=== PATIENT | female | born 1970 ===

== ENCOUNTER 2025-04-11 18:11 | Emergency (ER) | payer SELFPAY ==
--- OUTSIDE RECORDS SUMMARY | 2025-04-11 19:06 | XMS_ITS | Clinical Summary ---
Author Organization [employer] [facility] Address [address] [place] [address] Care Team Providers Care Induction Brazer Name Role Phone Zoey Taylor APRN, CNP Primary Care Prov ider Allergies No known active allergies Medications estradioL (ESTRACE) 0.01 % (0.1 mg/gram) vaginal CreamIndicatio ns:Postmenopau vivian atrophic vaginitis Apply 1 g by vaginal route every 2 to 3 days as directed for postmenopausal atrophic vaginitis. 42.5 g 3 5 Active FLUoxetine (PROZAC) 10 mg oral CapsuleIndicat ions:Recurrent major depression in remission Take 1 Capsule (10 mg) by mouth in the morning for 5 days. 5 Capsule 5 Active sertraline (ZOLOFT) 25 mg oral TabletIndicati ons:Recurrent major depression in remission Take 1 Tablet (25 mg) by mouth in the morning. 90 Tablet 3 5 026 Active Active Problems Problem Noted Date Diagnosed Date Recurrent major depression in remission 07/28/20 24 Postmenopause atrophic vaginitis 07/28/2024 Hypercholesterolemia 04/22/2020 Overweight 04/22/2020 Lichen sclerosus et atrophicus 09/13/2017 Overview (09/03/2024): Uses topical estrogen for this Resolved Problems Problem Noted Date Diagnosed Date Resolved Date Atypical mole 08/25/2024 09/03/2024 Overview (09/03/2024): Just noticed History of depression 10/31/20212024 Adjustment disorder with depressed mood 09/09/2020 01/15/2025 Cholelithiasis 04/22/2020 09/03/2024 Menorrhagia 04/22/2020 01/15/2025 Biliary colic 04/21/2020 09/03/2024 Overview (09/03/2024): Added automatically from request for surgery [id number] Encounters Date Type Department Care Team Description 04/01/2025 [place] [address] Zoey Taylor APRN,GENERAL I FARMWORKER Subj: KINGA 01/25/2025 [place] [address] Zoey Taylor APRN,GENERAL I FARMWORKER Dx: Recurrent major depression in remission (Primary Dx) 01/15/2025 11:30 AM CDT Office Visit [place] [phone] Zoey Taylor, GREEN ENERGY MARKETING ANALYST,GENERAL I FARMWORKER Dx: Annual physical exam (Primary Dx) 01/15/2025 Results Follow-Up [place] [phone] Zoey Taylor, GREEN ENERGY MARKETING ANALYST,GENERAL I FARMWORKER URINALYSIS WITH REFLEX TO MICROSCOPIC, LIPID PANEL, URINE CULTURE, Additional followed-up results: 2 01/15/2025 Travel Subj: Question naire Submission from Last 3 Months Immunizations Immunization Administration Dates Next Due Influenza Vac, IM, Quadrival ent Preserv Free, (>6 months) 07/23/2023,05/26/2015 Influenza Vac,IM, Quadrivale nt, Preservative Free, (>4 Yrs)(ccIIV4) 07/01/2019 Pneumococcal Conj Vac, 20-valent (Prevnar) 01/15 SARS-COV-2, IM (COVID-19)(Pfizer)(De [place] Cruz Label) SARS-CoV-2, IM (COVID-19)([place])(Spikevax), 12+yrs, 50mcg/0.5mL 01/15/2025 Tdap Vaccine, IM, (Adacel)(Boostrix) 08/25/2019 Family History Medical History Relation Name Comments COPD Father Depression Maternal Grandmother hospita lized, doesn't know details Other Mother unknow autoimmu ne disease Skin Cancer Sister Relation Name Status Comments Father Alive Maternal Grandmother Mother Alive Sister Alive Social History Tobacco Use Types Packs/Day Years Used Date Smoking Tobacco: Never Smokeless Tobacco: Never Tobacco Cessation:Counseling Given: Not Answered Alcohol Use Standard Drinks/Week Comments Yes 0 (1 standard drink = 0.6 oz pur e alcohol) Denies excessive alcohol use B1300 Health Literacy Answer Date Recor ded How often do you need to hav e someone help you when you read instructions, pamphlets, or other written material from your doctor or pharmacy? Never 07/25/2024 [facility] Utilities Answer Date Recorded In the past 12 months has e 1d4 Pty, gas, oil, or water Activity Rocket threatened to shut off services in your home? No 07/25/2024 Humiliation, Afraid, Rape, and Kick questionnair e Answer Date Recorded Within the last year, have y ou been afraid of your partner or ex-partner? No 07/25/2024 Within the last year, have y ou been humiliated or emotionally abused in other ways by your partner or ex-partner? No Within the last year, have y ou been kicked, hit, slapped, or otherwise physically hurt by your partner or ex-partner? No 07/25/2024 Within the last year, have y ou been raped or forced to have any kind of sexual activity by your partner or ex-partner? No 07/25/2024 Social Connection and Isolat ion Panel [NHANES] Answer Date Recorded In a typical week, how many times do you talk on the phone with family, friends, or neighbors? More than three times a week 07/25/2024 How often do you get togethe r with friends or relatives? Twice a week 07/25/2024 How often do you attend [facility] or anabaptist services? 1 to 4 times per year 07/25/2024 Do you belong to any clubs o r organizations such as zoroastrian groups, unions, fraternal or athletic groups, or school groups? Yes 07/25/2024 How often do you attend meet ings of the clubs or organizations you belong to? 1 to 4 times per year 07/25/2024 Are you , , di vorced, , never , or living with a partner? 07/25/2024 AUDIT-C Answer Date Recorded Q1: How often do you have a drink containing alc ohol? 2-4 times a month 07/25/2024 Q2: How many drinks containi ng alcohol do you have on a typical day when you are drinking? 3 or 4 07/25/2024 Q3: How often do you have si x or more drinks on one occasion? Less than monthly 07/25/2024 Overall Financial Resource Strain (CARDIA) Answe r Date Recorded How hard is it for you to pa y for the very basics like food, housing, medical care, and heating? Patient declined 07/25/2024 [facility] - Occupational Stress Questionnaire Answer Date Recorded Do you feel stress - tense, restless, nervous, or anxious, or unable to sleep at night because your mind is troubled all the time - these days? Rather much 07/25/2024 Exercise Vital Sign Answer Date Recorde d On average, how many days pe r week do you engage in moderate to strenuous exercise (like a brisk walk)? 3 days 07/25/2024 On average, how many minutes do you engage in exercise at this level? 30 min 07/25/2024 Hunger Vital Sign Answer Date Recorded Within the past 12 months, y ou worried that your food would run out before you got the money to buy more. Never true 07/25/20 24 Within the past 12 months, t he food you bought just didn't last and you didn't have money to get more. Never true 07/25/2024 Housing Stability Vital Sign Answer J Luis e Recorded In the last 12 months, was t here a time when you were not able to pay the mortgage or rent on time? No 07/25/2024 In the past 12 months, how m any times have you moved where you were living? 1 07/25/2024 At any time in the past 12 m [facility], were you homeless or living in a halfway (including now)? No 07/25/2024 Housing Stability Answer Date Recorded In the last 12 months, was t here a time when you were not able to pay the mortgage or rent on time? No 07/25/2024 Number of Places Lived in the Last Year Not on f ile 07/25/2024 Number of Places Lived in the Last Year (Outpati ent) Not on file 07/25/2024 Number of Places Lived in the Last Year (Inpatie nt) Not on file 07/25/2024 Unstable Housing in the Last Year Not on file 07/25/2024 Depression (PHQ-9) Answer Date Recorded Last PHQ-9 Score 3 01/14/2025 Thoughts of self harm Not at all 01/14/2025 Pediatric Housing Stability Answer Date Recorded At any time in the past 12 m [facility], were you homeless or living in a halfway (including now)? No 07/25/2024 In the past 12 months, how m any times have you moved where you were living? 1 07/25/2024 Housing Condition Worry Not on file 07/25/20 Transportation Needs Answer Date Record ed In the past 12 months, has l ack of transportation kept you from medical appointments, meetings, work, or from getting medicines or things needed for daily living? No 07/25/2024 Caregiver Education and Work Answer J Luis e Recorded High School Degree Not on file 07/25/2024 How often do you need to hav e someone help you when you read instructions, pamphlets, or other written material from your doctor or pharmacy? Never 07/25/2024 Comments No Sex and Gender Information Value Date Recorded Sex Assigned at Not on file Legal Sex Female 6:23 PM FIRESTOPPER INSTALLER Gender Identity Not on file Sexual Orientation Not on file Last Filed Vital Signs Vital Sign Reading Time Taken Comments Blood Pressure 128/78 01/15/2025 11:13 AM CDT Pulse 71 01/15/2025 11:13 AM CDT Temperature 35.9 C (96.7 F) 08/25/2019 7:43 AM FIRESTOPPER INSTALLER Respiratory Rate 20 08/10/2016 4:39 PM FIRESTOPPER INSTALLER Oxygen Saturation 95% 08/10/2016 4:39 PM FIRESTOPPER INSTALLER Inhaled Oxygen Concentration - - Weight 75.3 kg (166 lb) 01/15/2025 11:13 AM CDT Height 159.4 cm (5' 2.75) 01/15/2025 11:13 AM C DT Body Mass Index 29.64 01/15/2025 11:13 AM CDT Plan of Treatment Health Maintenance Due Date Last Done Comments HIV Screen 1983 Hepatitis B Vaccines (1 of 3 - 19+ 3-dose series) 1987 CT Colonography 2013 Colonoscopy 2013 Colorectal Cancer Screening 2013 Fecal Immunochemical DNA Test (FIT-DNA) 2013 Fecal Immunochemical Test (FIT) 2013 Varicella Zoster Sequential (1 of 2) 2018 Mammogram Standard 11/28/2023 11/27/2022 Depression Screening 04/16/2025 01/14/2025 Influenza Vaccine (#1) 2025 , 07/01/2019, 05/26/2015 DTaP/Tdap/Td Vaccines (2 - Td or Tdap) 08/25/2029 08/25/2019 Cervical Cancer Screening 01/15/2030 01/15/2025, HPV Testing 01/15/2030 01/15/2025 Lipids Standard 01/15/2030 01/15/2025, 06/20, 08/25/2019 Respiratory Syncytial Virus (RSV) Vaccine (1 - 1-dose 75+ series) 2043 Hepatitis C Testing Completed 12/05/2024 COVID-19 Vaccine Completed 01/15/2025, 02/2022, 09/17/2020, Additional history exists Pneumococcal Vaccine (50+ Years) Completed 01/15/2025 HIB Vaccines Aged Out No longer eligi ble based on patient's age to complete this topic HPV Vaccines (No Doses Required) Completed Hepatitis A Vaccines Aged Out No long er eligible based on patient's age to complete this topic Meningococcal B Vaccines Aged Out No longer eligible based on patient's age to complete this topic Meningococcal Vaccines Aged Out No lo nger eligible based on patient's age to complete this topic Procedures Procedure Name Priority Date/Time Associated Diagnosis Comments LIPID PANEL Routine 01/15/2025 12:01 PM CDT Hypercholesterolem ia HUMAN PAPILLOMAVIRUS DETECTION WITH GENOTYPING, HIGH-RISK TYPES BY PCR Routine 01/15/2025 11:53 AM CDT Screening for cervical cancer PAP TEST Routine 01/15/2025 11:53 AM CDT Screening for cervical cancer URINE CULTURE Routine 01/15/2025 11:45 AM CDT Urinary frequency URINALYSIS WITH REFLEX TO MICROSCOPIC Routine 01/15/2025 11:45 AM CDT Urinary frequency HEPATITIS C AB Routine 12/05/2024 9:13 AM CDT Encounter for hepatitis C screening test for low risk patient from Last 3 Months or Most Recently Relevant to Health Maintenance Results * (ABNORMAL) LIPID PANEL (01/15/2025 12:01 PM CDT) Cholesterol 310(H) 0 - 200 mg/dL 01/15/2025 12:31 PM CDT [facility] Triglycerides 237(H) 0 - 150 mg/dL 01/15/2025 12:31 PM CDT [facility] Cholesterol, LDL (Calculated) 199(H) 0 - 130 mg/dL 01/15/2025 12:31 PM CDT [facility] Cholesterol, HDL 64 >=40 mg/dL 01/15/2025 12:31 PM CDT [facility] Cholesterol, vLDL 47(H) 8 - 44 mg/dL 01/15/2025 12:31 PM CDT [facility] Fasting Status No 01/15/2025 12:31 PM CDT [facility] Blood VENOUS BLOOD / Unknown Venipuncture / Unknown 01/15/2025 12:01 PM CDT 01/15/2025 12:01 PM CDT us Zoey Taylor APRN,GENERAL I FARMWORKER LAB CHEMISTRY ORDE JEAN Final Result [facility] [address] [place] [address], [place] [phone] * PAP TEST (01/15/2025 11:53 AM CDT) Specimen Adequacy Satisfactory for evaluation: Endocervical component present. 11:26 AM CDT [facility] Interpretation Negative for intraepithelial lesion or malignancy. Negative 11:26 AM CDT [facility] at 1126 CDT HPV Reflex? Pap test with HPV Co-Testing unless Pap test shows HSIL 11:26 AM CDT [facility] Menstrual Status Premenopausal 01/20 11:26 AM CDT [facility] Disclaimer/Infor mational Comment The Pap test is an initial screening test that is helpful in the detection of certain benign, pre-malignant disorders of cervical and vaginal tissues. Like all medical tests, the Pap test has an inherent false-negative and false-positive rate, therefore, regular gynecologic health care with Pap test screening is highly suggested. In addition, an abnormal result may require additional confirmatory testing. 11:26 AM CDT [facility] Other CERVIX UTERI STRUCTURE / Unknown Non-blood Collection / Unknown 01/15/2025 11:53 AM CDT 01/15/2025 1:25 PM CDT Zoey Taylor APRN,GENERAL I FARMWORKER LAB CYTOLOGY ORDER JUAREZ Final Result [facility] [address] [place] [address], * HUMAN PAPILLOMAVIRUS DETECTION WITH GENOTYPING, HIGH-RISK TYPES BY PCR (01/15/2025 11:53 AM CDT) Human papilloma virus DNA/mRNA Negative Negative HOLOGIC PANTHER 01/21/2025 12:12 PM CDT [facility] Other CERVIX UTERI STRUCTURE / Unknown Non-blood Collection / Unknown 01/15/2025 11:53 AM CDT 01/20/2025 11:26 AM CDT Narrative [facility] - 01/21/2025 12:12 PM CDT The APTIMA HPV assay is an invitro nucleic acid amplification test for the qualitative detection of E6/E7 viral messenger RNA (mRNA) of 14 high-risk types of HPV. This test was developed and performance characteristics determined by [facility]. It has not been reviewed by the U.S. Food and Drug Administration. Such a review is neither encouraged nor required. us Zoey Taylor APRN,DELANEY LAB MOLECULAR ORDTacos PENA Final Result [facility] [address] [place] [address], [place] [phone] * URINALYSIS WITH REFLEX TO MICROSCOPIC (01/15/2025 11:45 AM CDT) Color, Urine Yellow Yellow 01/15/2025 1:31 PM CDT [facility] Clarity, Urine Clear Clear 01/15/2025 1:31 PM CDT [facility] Specific [place], Urine <=1.005 1.005 - <1.030 01/15/2025 1:31 PM CDT [facility] Glucose, Urine Negative Negative 01/15/2025 1:31 PM CDT [facility] Bilirubin, Urine Negative Negative 01/15/2025 1:31 PM CDT [facility] Ketone, Urine Negative Negative 01/15/2025 1:31 PM CDT [facility] Blood, Urine Negative Negative 01/15/2025 1:31 PM CDT [facility] pH, Urine 6.5 5.0 - 8.5 pH 01/15/2025 1:31 PM CDT [facility] Protein, Urine Negative Negative 01/15/2025 1:31 PM CDT [facility] Urobilinogen, Urine 0.2 <2.0 EU/dL 01/15/2025 1:31 PM CDT [facility] Nitrite, Urine Negative Negative 01/15/2025 1:31 PM CDT [facility] Leukocyte Esterase, Urine Negative Negative 01/15/2025 1:31 PM CDT [facility] Urine URINE SPECIMEN OBTAINED BY CLEAN CATCH PROCEDURE / Unknown Non-blood Collection / Unknown 01/15/2025 11:45 AM CDT 01/15/2025 1:28 PM CDT Zoey Taylor APRN, CNP LAB URINE ORDERABL ES Final Result [facility] [address] [place] [address], [place] [phone] * URINE CULTURE (01/15/2025 11:45 AM CDT) Culture <10,000 colonies/mL Probable contaminant(s ) 01/17/2025 7:30 AM CDT [facility] Urine URINE SPECIMEN OBTAINED BY CLEAN CATCH PROCEDURE / Unknown Non-blood Collection / Unknown 01/15/2025 11:45 AM CDT 01/15/2025 1:29 PM CDT Zoey Taylor APRN, CNP LAB MICROBIOLOGY O RDERABLES Final Result [facility] [address] [place] [address], [place] [phone] * HEPATITIS C AB (12/05/2024 9:13 AM CDT) HCV Ab Nonreactive Nonreactive 12/05/2024 1:22 PM CDT [facility] Comment:Interpretation: Anti bodies to HCV were not detected; does not exclude the possibility of exposure to HCV. Blood VENOUS BLOOD / Unknown Venipuncture / Unknown 12/05/2024 9:13 AM CDT 12/05/2024 9:13 AM CDT Zoey Taylor APRN, CNP LAB SEROLOGY ORDER JUAREZ Final Result [facility] [address] [place] [facility] [place] [address], [place] [phone] from Last 3 Months or Most Recently Relevant to Health Maintenance Insurance RETURNED MAIL [facility] [phone] [place] [id number] BCBS OUT OF STATE RETURNED MAIL [facility] [phone] [place] [id number] Care Teams Induction Brazer Relationship Specialty Start Date End Date Zoey Taylor APRN, CNP [address] [place] [phone] PCP - General Nurse Practitioner 12/01/24 Additional Source Comments PLEASE NOTE: Replies to this message will not be received.[facility]
--- OUTSIDE RECORDS SUMMARY | 2025-04-11 19:06 | XMS_ITS | Referral Summary ---
Author Organization [facility] Address [address] [place] [address] Care Team Providers Care Production Drilling Machine Operator Name Role Phone Zoey Taylor APRN, CNP Primary Care Prov ider Encounters Date Type Department Care Team Description 04/01/2025 Patient Message [place] [phone] Zoey Taylor APRN, CNP Subj: KINGA 01/25/2025 Refill [place] [phone] Zoey Taylor APRN, CNP Dx: Recurrent major depression in remission (Primary Dx) 01/15/2025 Results Follow-Up [place] [phone] Zoey Taylor APRN, CNP URINALYSIS WITH REFLEX TO MICROSCOPIC, LIPID PANEL, URINE CULTURE, Additional followed-up results: 2 01/15/2025 Travel Subj: Question naire Submission 01/15/2025 11:30 AM CDT Office Visit [address] [address] Zoey Taylor APRN, CNP Dx: Annual physical exam (Primary Dx) from Last 3 Months Allergies No known active allergies Medications estradioL [...] (09/03/2024): Added automatically from request for surgery [id number] Immunizations Immunization Administration Dates Next Due Influenza Vac, IM, Quadrival ent Preserv Free, (>6 months) 07/23/2023,05/26/2015 Influenza Vac,IM, Quadrivale nt, Preservative Free, (>4 Yrs)(ccIIV4) 07/01/2019 Pneumococcal Conj Vac, 20-valent (Prevnar) 01/15 SARS-COV-2, IM (COVID-19)(Pfizer)(De La Cruz Label) SARS-CoV-2, IM (COVID-19)(Mo derna)(Spikevax), 12+yrs, 50mcg/0.5mL 01/15/2025 Tdap Vaccine, IM, (Adacel)(Boostrix) 08/25/2019 Social History Tobacco Use Types Packs/Day Years [...] from your doctor or pharmacy? Never 07/25/2024 [facility] Utilities Answer Date Recorded In the past 12 months has e [employer], gas, oil, or water [employer] threatened to shut off services in your [...] week 07/25/2024 How often do you attend chur or restorationist services? 1 to 4 times per year 07/25/2024 Do you belong to any clubs o r organizations such as druze groups, unions, fraternal or athletic groups, or [...] medical care, and heating? Patient declined 07/25/2024 [facility] of Occupat ional Health - Occupational Stress Questionnaire Answer Date Recorded [...] any time in the past 12 m [facility], were you homeless or living in a retirement (including now)? No 07/25/2024 Housing Stability Answer [...] any time in the past 12 m [facility], were you homeless or living in a retirement (including now)? No 07/25/2024 In the past 12 months, how m any times have you moved where you were living? 1 07/25/2024 Housing Condition Worry Not on file 07/25/20 24 Transportation Needs Answer Date Record ed In [...] on file Legal Sex Female 6:23 PM FORECLOSURE FIELD INSPECTOR Gender Identity Not on file Sexual Orientation Not on file Last Filed Vital Signs Vital Sign Reading Time Taken Comments Blood Pressure 128/78 01/15/2025 11:13 AM CDT Pulse 71 01/15/2025 11:13 AM CDT Temperature 35.9 C (96.7 F) 08/25/2019 7:43 AM FORECLOSURE FIELD INSPECTOR Respiratory Rate 20 08/10/2016 4:39 PM FORECLOSURE FIELD INSPECTOR Oxygen Saturation 95% 08/10/2016 4:39 PM FORECLOSURE FIELD INSPECTOR Inhaled Oxygen Concentration - - Weight 75.3 kg (166 lb) 01/15/2025 11:13 AM CDT Height 159.4 cm (5' 2.75) 01/15/2025 11:13 AM C DT Body Mass Index 29.64 01/15/2025 11:13 AM CDT Functional Status * Are you deaf or do you have serious difficulty hearing? Answer Date of Assessment Author No 08/10/2016 4:39 PM Andie Wilson RN * Are you blind or do you have serious difficulty seeing, even when wearing glasses? Answer Date of Assessment Author No 08/10/2016 4:39 PM Andie Wilson RN * Do you have serious difficulty walking or climbing stairs? Answer Date of Assessment Author No 08/10/2016 4:39 PM Andie Wilson RN * Do you have difficulty dressing or bathing? Answer Date of Assessment Author No 08/10/2016 4:39 PM Andie Wilson RN * Do you have difficulty doing errands alone such as visiting a doctor's office or shopping because of a physical, mental, or emotional condition? Answer Date of Assessment Author No 08/10/2016 4:39 PM Andie Wilson RN Mental Status * Do you have trouble concentrating, remembering, or making decisions because of a physical, mental, or emotional condition? Answer Entry Date Author No 08/10/2016 4:39 PM Andie Wilson RN Plan of Treatment Not on file Procedures Procedure Name Priority Date/Time Associated Diagnosis [...] - 200 mg/dL 01/15/2025 12:31 PM CDT [facility] Triglycerides 237(H) 0 - 150 mg/dL 01/15/2025 12:31 PM CDT [facility] Cholesterol, LDL (Calculated) 199(H) 0 - 130 mg/dL 01/15/2025 12:31 PM CDT [facility] Cholesterol, HDL 64 >=40 mg/dL 01/15/2025 12:31 PM CDT [facility] Cholesterol, vLDL 47(H) 8 - 44 mg/dL 01/15/2025 12:31 PM CDT [facility] Fasting Status No 01/15/2025 12:31 PM CDT [facility] Blood VENOUS BLOOD / Unknown Venipuncture / Unknown 01/15/2025 12:01 PM CDT 01/15/2025 12:01 PM CDT us Zoey Taylor APRN,DELANEY LAB CHEMISTRY ORDE JEAN Final Result [facility] [address] [place] [phone], * PAP TEST (01/15/2025 11:53 AM CDT) Specimen Adequacy Satisfactory for evaluation: Endocervical component present. 11:26 AM CDT [facility] Interpretation Negative for intraepithelial lesion or malignancy. Negative 5 11:26 AM CDT [facility] at 1126 CDT HPV Reflex? Pap test with HPV Co-Testing unless Pap test shows HSIL 11:26 AM CDT [facility] Menstrual Status Premenopausal 01/20 11:26 AM CDT [facility] Disclaimer/Infor mational Comment The Pap test is [...] require additional confirmatory testing. 11:26 AM CDT [facility] Other CERVIX UTERI STRUCTURE / Unknown Non-blood Collection / Unknown 01/15/2025 11:53 AM CDT 01/15/2025 1:25 PM CDT us Zoey Taylor APRN, CNP LAB CYTOLOGY ORDER JUAREZ Final Result Performing Organization Address City/[facility]/ZIP Co de Phone Number [facility] [address] [place] [address], [place] [phone] * HUMAN PAPILLOMAVIRUS DETECTION WITH GENOTYPING, HIGH-RISK TYPES BY PCR (01/15/2025 11:53 AM CDT) Human papilloma virus DNA/mRNA Negative Negative HOLOGIC PANTHER 01/21/2025 12:12 PM CDT [facility] Other CERVIX UTERI STRUCTURE / Unknown Non-blood Collection / Unknown 01/15/2025 11:53 AM CDT 01/20/2025 11:26 AM CDT Narrative [facility] - 01/21/2025 12:12 PM CDT The APTIMA HPV assay is an invitro nucleic acid amplification test for the qualitative detection of E6/E7 viral messenger RNA (mRNA) of 14 high-risk types of HPV. This test was developed and performance characteristics determined by [facility]. It has not been reviewed by the U.S. Food and Drug Administration. Such a review is neither encouraged nor required. us Zoey Taylor APRN, CNP LAB MOLECULAR ORDE RABLES Final Result Performing Organization Address City/[facility]/ZIP Co de Phone Number [facility] [address] [place] [address], [place] [phone] * URINALYSIS WITH REFLEX TO MICROSCOPIC (01/15/2025 11:45 AM CDT) Color, Urine Yellow Yellow 01/15/2025 1:31 PM CDT [facility] Clarity, Urine Clear Clear 01/15/2025 1:31 PM CDT [facility] Specific [place], Urine <=1.005 1.005 - <1.030 01/15/2025 1:31 PM CDT [facility] Glucose, Urine Negative Negative 01/15/2025 1:31 PM CDT [facility] Bilirubin, Urine Negative Negative 01/15/2025 1:31 PM CDT [facility] Ketone, Urine Negative Negative 01/15/2025 1:31 PM CDT [facility] Blood, Urine Negative Negative 01/15/2025 1:31 PM CDT [facility] pH, Urine 6.5 5.0 - 8.5 pH 01/15/2025 1:31 PM CDT [facility] Protein, Urine Negative Negative 01/15/2025 1:31 PM CDT [facility] Urobilinogen, Urine 0.2 <2.0 EU/dL 01/15/2025 1:31 PM CDT [facility] Nitrite, Urine Negative Negative 01/15/2025 1:31 PM CDT [facility] Leukocyte Esterase, Urine Negative Negative 01/15/2025 1:31 PM CDT [facility] Urine URINE SPECIMEN OBTAINED BY CLEAN CATCH PROCEDURE / Unknown Non-blood Collection / Unknown 01/15/2025 11:45 AM CDT 01/15/2025 1:28 PM CDT us Zoey Taylor APRN,PROCESS CONTROLLER LAB URINE ORDERABL ES Final Result [facility] [address] [place] [address], [place] [phone] * URINE CULTURE (01/15/2025 11:45 AM CDT) Culture <10,000 colonies/mL Probable contaminant(s ) 01/17/2025 7:30 AM CDT [facility] Urine URINE SPECIMEN OBTAINED BY CLEAN CATCH PROCEDURE / Unknown Non-blood Collection / Unknown 01/15/2025 11:45 AM CDT 01/15/2025 1:29 PM CDT Zoey Taylor APRN, CNP LAB MICROBIOLOGY O RDERABLES Final Result Performing Organization Address [facility]/ZIP Co de Phone Number [facility] [address] [place] [address], [place] [phone] * HEPATITIS C AB (12/05/2024 9:13 AM CDT) HCV Ab Nonreactive Nonreactive 12/05/2024 1:22 PM CDT [facility] Comment:Interpretation: Anti bodies to HCV were not detected; does not exclude the possibility of exposure to HCV. Blood VENOUS BLOOD / Unknown Venipuncture / Unknown 12/05/2024 9:13 AM CDT 12/05/2024 9:13 AM CDT Zoey Taylor APRN, CNP LAB SEROLOGY ORDER JUAREZ Final Result Performing Organization Address [facility] Co de Phone Number [facility] [address] [place] [address], [place] [phone] from Last 3 Months or Most Recently Relevant to Health Maintenance Insurance RETURNED MAIL [id number] [place] [id number] [id number] [place] [id number] BCBS OUT OF STATE [place] [id number] [id number] [place] [id number] Care Teams Production Drilling Machine Operator Relationship Specialty Start Date End Date Zoey Taylor APRN,PROCESS CONTROLLER [address] [place] [address] [address] [place] [phone] PCP - General Nurse Practitioner 12/01/24 Additional Source Comments PLEASE NOTE: Replies to this message will not be received.[facility]
--- OUTSIDE RECORDS SUMMARY | 2025-04-11 19:06 | XMS_ITS | Encounter Summary ---
Author Organization [employer] [facility] Address [address] [place] [address] Care Team Providers Care Infection Control Practitioner Name Role Phone Zoey Taylor APRN, CNP Primary Care Prov ider Encounter Details Date Type Department Care Team (Late st Contact Info) Description 04/01/2025 Patient Message [facility] [address] [facility] [address] [place], [place] [phone] Zoey Taylor APRN, CNP [address] [facility] [address] [place] [phone] Subj: KINGA Social History Tobacco Use Types Packs/Day Years Used Date Smoking Tobacco: Never Smokeless Tobacco: Never Alcohol Use Standard Drinks/Week Comments Yes 0 (1 standard drink = 0.6 oz pur e alcohol) Denies excessive alcohol use B1300 Health Literacy Answer Date Recor ded How often do you need to hav e someone help you when you read instructions, pamphlets, or other written material from your doctor or pharmacy? Never 07/25/2024 [facility] Utilities Answer Date Recorded In the past 12 months has [facility] [employer], gas, oil, or water [employer] threatened to shut off services in your [...] 07/25/2024 How often do you attend chur ch or judaism services? 1 to 4 times per year 07/25/2024 Do you belong to any clubs o r organizations such as mosque groups, unions, fraternal or athletic groups, or [...] medical care, and heating? Patient declined 07/25/2024 [facility] of Occupat ional Health - Occupational Stress [...] any time in the past 12 m [facility], were you homeless or living in a care home (including now)? No 07/25/2024 Housing Stability Answer [...] any time in the past 12 m [facility], were you homeless or living in a care home (including now)? No 07/25/2024 In the past [...] on file Legal Sex Female 6:23 PM FORENSIC PSYCHOLOGIST Gender Identity Not on file Sexual Orientation Not on file documented as of this encounter Functional Status * Are you deaf or [...] No 08/10/2016 4:39 PM Andie Wilson RN documented as of this encounter Mental Status * Do you have trouble concentrating, remembering, or making decisions because of a physical, mental, or emotional condition? Answer Entry Date Author No 08/10/2016 4:39 PM Andie Wilson RN documented in this encounter Plan of Treatment Not on file documented as of this encounter Visit Diagnoses Not on filedocumented in this encounter Care Teams Infection Control Practitioner Relationship Specialty Start Date End Date Zoey Taylor APRN,MANAGER OF EMPLOYEE RELATIONS [address] [place] [phone] PCP - General Nurse Practitioner 12/01/24 documented as of this encounter Additional Source Comments PLEASE NOTE: Replies to this message will not be received.[facility]
--- OUTSIDE RECORDS SUMMARY | 2025-04-11 19:06 | XMS_ITS | Encounter Summary ---
Author Organization [facility] Address [address] [place] [address] Care Team Providers Care Certified Nurse Midwife Name Role Phone Provider, No Primary Primary Care Provider Unava ilable Provider, No Primary Unavailable Unavailable Lindsay Mason APRN, CNP Primary Care Provid er Unavailable Provider, No Primary Primary Care Provider Unava ilable Zoey Taylor APRN, CNP Primary Care Prov ider Encounter Details Date Type Department Care Team (Late st Contact Info) Description 10/25/1994 Historical Notes [address] [address] Unknown, [place] [address] Social History Tobacco Use Types Packs/Day Years Used Date Smoking Tobacco: Never Assessed Comments Unknown Sex and Gender Information Value Date Recorded Sex Assigned at Not on file Legal Sex Female 6:23 PM CREDIT OPERATIONS PROCESSOR Gender Identity Not on file Sexual Orientation Not on file documented as of this encounter Procedure Notes * Unknown, Provider - 10/25/1994 9:[address] Szymanski This 24-year-old G2, P1 now P2 at 38 weeks gestation, , prior section for 10 pound, 3 ounce baby at 42 weeks, complicated by hemorrhage, hemoglobin of 4, requiring 3 units of packed red blood cells with development of anti-lian antibody titer during this , was as high as 1 to 256, Liley's zone had been 1 on two occasions, no sign of hydrops on ultrasound. Biophysical profile scores 10 out of 10. Estimated weight on last ultrasound 8 pounds 12 ounces. Estimated weight by Robert 8 1/2 to 9 pounds. Options were discussed, risks discussed, patient wanted to proceed with trial of labor. Cervix was dilated to 3, 70% effaced, and -2 station. Membranes were ruptured yielding clear fluid. She progressed well, received Nubain x 1 to complete and began to push, did have some heart tones in the 80 to 90s with good return into the 120s and 130s, developed a 12 minute pattern of heart tones in the 170s with good variability, had brought the baby down to +2 station, for that reason vacuum assist was applied after risks discussed. Was able to bring the baby down to . At that point we had to re-apply the vacuum and with one pull delivered a live born male , with a nuchal arm x 1 that was reduced and a mild shoulder dystocia that responded to reducing the nuchal arm, McRobert's position, and suprapubic pressure. Apgars were 7 at one and 8 at five. Weight 7 pounds, 13 ounces, EBL 350 cc. Repair of the episiotomy was with #2-0 and #3-0 Vicryl. Placenta delivered spontaneously intact. I did explore the uterus. There were no retained products from conception. Inspection of the vagina and cervix noted no other lacerations. EBL 350 cc. No blood was replaced. Dic 10/25/94 [place] 10/26/94 moo Szymanski LABOR AND DELIVERY SUMMARY NAME: Sammi Fournier ROOM: [facility] MR#: [id number] MEDICAL RECORDS DEPARTMENT DELIVERY DATE: 10/25/94 [facility] [place]. D/ , 0900 documented in this encounter Plan of Treatment Not on file documented as of this encounter Visit Diagnoses Not on filedocumented in this encounter Care Teams Certified Nurse Midwife Relationship Specialty Start Date End Date Provider, [place] [address] PCP - General 08/10/16 08/24/19 Lindsay Mason BUS INSPECTOR,SALES [place] [address] PCP - General Nurse Practitioner 08/25/19 08/24/20 Provider, [place] [address] PCP - General 08/25/20 11/30/24 Zoey Taylor BUS INSPECTOR,SALES SUPPORT CONSULTANT [address] [place] [phone] PCP - General Nurse Practitioner 12/01/24 Provider, No Primary . [place] [address] 09/17/17 11/30/24 documented as of this encounter Additional Source Comments PLEASE NOTE: Replies to this message will not be received.[facility]
--- OUTSIDE RECORDS SUMMARY | 2025-04-11 19:06 | XMS_ITS | Encounter Summary ---
Author Organization [facility] Address [address] [place] [address] Care Team Providers Care Director Of Acquisitions Name Role Phone Zoey Taylor APRN, CNP Primary Care Prov ider Encounter Details Date Type Department Care Team (Late st Contact Info) Description 01/15/2025 Results Follow-Up [facility] [address] [place] [phone] Zoey Taylor APRN, CNP [address] [place] [phone] URINALYSIS WITH REFLEX TO MICROSCOPIC, LIPID PANEL, URINE CULTURE, Additional followed-up results: 2 Social History Tobacco Use Types Packs/Day Years [...] from your doctor or pharmacy? Never 07/25/2024 [facility] Utilities Answer Date Recorded In the past 12 months has e electric, gas, oil, or water company threatened to shut off services in your [...] How often do you attend chur or sikh services? 1 to 4 times per year 07/25/2024 Do you belong to any clubs o r organizations such as baptism groups, unions, fraternal or athletic groups, or [...] medical care, and heating? Patient declined 07/25/2024 [facility] Occup[facility] ional Health - Occupational Stress [...] any time in the past 12 m [facility], were you homeless or living in a prison (including now)? No 07/25/2024 Housing Stability Answer [...] any time in the past 12 m [facility], were you homeless or living in a prison (including now)? No 07/25/2024 In the past [...] on file Legal Sex Female 6:23 PM HEALTH SPA MANAGER Gender Identity Not on file Sexual Orientation [...] on filedocumented in this encounter Care Teams Director Of Acquisitions Relationship Specialty Start Date End Date Zoey Taylor APRN,INFORMATICA DEVELOPER [address] [place] [phone] PCP - General Nurse Practitioner 12/01/24 documented as of this encounter Additional Source Comments PLEASE NOTE: Replies to this message will not be received.[facility]
--- NOTE | 2025-05-28 13:04 | PM.EN ---
Chart Event Note Chart Event Note: This patient left before being seen.
--- NOTE | 2025-06-06 08:26 | W.ED.CHARTNO ---
ED Chart Note Chart Note Details Date: 06/06/25 Details: This patient left without being seen.
== END 2025-04-11 19:05 | disposition left against medical advice (07) ==
LOC: ED 19:04
PROVIDERS: Emergency Provider Family Medicine
DX: Z53.21 Procedure and treatment not carried out due to patient leaving prior to being seen by health care provider (principal)
CPT/HCPCS: 81001